=== PATIENT | male | born 1990 | race Caucasian/White ===

== ENCOUNTER 2017-02-28 13:03 | Emergency (ER) | payer OTHER ==
[~2017-02-28] VITALS: Ht 180.3 cm; Wt 106.0 kg
[2017-02-28] VITALS (7 sets, daily range): BP systolic 108–134; BP diastolic 56–74; PULSE 88–127; RESP 16–22; TEMP 99.4–103; O2SAT 94–100
[~2017-02-28 13:03] MED LIST: CLIN150 PO; PERC5TAB12 PO; PROT40TA PO
[2017-02-28] MEDS ORDERED: TYLE325T PO (13:17)
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
[2017-02-28] MEDS ORDERED: IBUPROFEN 600 MG TAB PO ONE (13:30)
[2017-02-28] MEDS ORDERED: SODIUM CHLOR 0.9% 1000 ML INJ 1,000 ML IV ONE (13:30)
[2017-02-28] MEDS ORDERED: ONDANSETRON HCL 4 MG/2 ML VIAL IV PUSH ONE (13:30)
[2017-02-28 13:50] LABS: AUTOMATED NEUTROPHIL # 8.1 TH/MM3 (1.8-7.7); BASOPHIL % 0.5 % (0.0-2.0); HEMATOCRIT 41.8 % (39.0-51.0); HEMO FLAGS DIFF FINAL; LYMPH % 4.3 % (9.0-44.0); LYMPHOCYTE # 0.4 TH/MM3 (1.0-4.8); MEAN CELL VOLUME 88.1 FL (80.0-100.0); MEAN CORPUSCULAR HGB CONC 35.2 % (32.0-36.0); MONO % 7.2 % (0.0-8.0); PLATELET COUNT 186 TH/MM3 (150-450); RED BLOOD COUNT 4.74 MIL/MM3 (4.50-5.90); RED CELL DISTRIBUTION WIDTH 12.5 % (11.6-17.2); WHITE BLOOD COUNT 9.2 TH/MM3 (4.0-11.0)
[2017-02-28 13:59] LABS: CHLORIDE 104 MEQ/L (98-107); POTASSIUM 3.6 MEQ/L (3.5-5.1); SODIUM (NA) 138 MEQ/L (136-145)
[2017-02-28 14:03] LABS: ANION GAP 10 MEQ/L (5-15); BICARBONATE 24.2 MEQ/L (21.0-32.0); BLOOD UREA NITROGEN 7 MG/DL (7-18)
[2017-02-28 14:04] LABS: APTT (PATIENT) 21.7 SEC (24.3-30.1); INTERNATIONAL NORMALIZED RATIO 1.2 RATIO; PROTHROMBIN TIME - PATIENT 13.3 SEC (9.8-11.6)
[2017-02-28 14:06] LABS: ALT (GPT) 21 U/L (12-78); AST (GOT) 17 U/L (15-37); GLOMERULAR FILTRATION RATE 82 ML/MIN (>89)
[2017-02-28 14:07] LABS: TOTAL BILIRUBIN ADULT 0.5 MG/DL (0.2-1.0)
[2017-02-28 14:09] LABS: ALKALINE PHOSPHATASE 51 U/L (45-117)
[2017-02-28 14:10] LABS: BLOOD, URINE SMALL (NEG); GLUCOSE,URINE NEG (NEG); KETONE, URINE NEG (NEG); NITRITE,URINE NEG (NEG)
--- NOTE | 2017-02-28 14:13 | RADHPO ---
EXAM DATE/TIME: 02/28/2017 13:48 [facility] COMPARISON: CHEST SINGLE AP, October 16, 2014, 22:20. INDICATIONS : Fever. Headache. Nausea. Vomiting. Syncope. MEDICAL HISTORY : Former smoker. SURGICAL HISTORY : Left wrist. ENCOUNTER: Initial ACUITY: 2 days PAIN SCORE: 0/10 LOCATION: chest FINDINGS: A single view of the chest demonstrates the lungs to be symmetrically aerated without evidence of mas s, infiltrate or effusion. The cardiomediastinal contours are unremarkable. Osseous structures are intact. CONCLUSION: 1. No acute cardiopulmonary findings. Jose Daniel Hu MD on February 28, 2017 at 14:06 Board Certified Radiologist. This report was verified electronically.
[2017-02-28 14:35] LABS: URINE COLOR YELLOW (YELLW/STRAW)
[2017-02-28 14:36] LABS: COMMENT (UR) CULT NOT INDICATED; CULTURE IF INDICATED CULT NOT INDICATED; RBC, URINE 0-3 /hpf (0-3); SQUAMOUS EPITHELIAL CELL URINE 0-5 /hpf (0-5); WBC, URINE 0-2 /hpf (0-5)
[2017-02-28] MEDS ORDERED: IOHEXOL 350 MG/ML 10 ML VIAL (for RAD DIAG) IV ONE (14:43)
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
[2017-02-28] MEDS ORDERED: DICY10 PO (16:04)
[2017-02-28] MEDS ORDERED: ZOFR4TAB3 SL (16:04)
[2017-02-28] MEDS ORDERED: TRAM50TA PO (16:04)
[2017-02-28] MEDS ORDERED: KETOROLAC TROMETHAMINE 30 MG/ML (IVP) VIAL IV PUSH ONE (16:15)
== END 2017-02-28 17:43 | disposition home or self-care (01) ==
LOC: PHED 13:03
DX: B34.9 Viral infection, unspecified (principal)
CPT/HCPCS: 70450; 71010; 74177; 80053; 81001; 83605; 83690; 85025; 85610; 85730; 87040; 87081; 87205; 87804; 87880; 96361; 96374; 96375; 99285; J1885; J2405; J7030; Q9967